=== PATIENT | male | born 1935 | race Caucasian/White ===

== ENCOUNTER 2024-03-13 09:45 | Inpatient (IN) ==
[2024-03-13] MEDS: Morphine 4 MG/ML VIAL (1 ml) IV ONE ×3 (10:42→13:50)
[2024-03-13 11:10] LABS: ABS Lymphocytes 0.2 10^3/uL (1.0-4.8); ABS Monocytes 1.1 10^3/uL (0.0-1.1); ABS Neutrophils 17.5 10^3/uL (1.5-7.6); Lymphocyte % 1.1 %; Platelet Count 130 10^3/uL (150-450)
[2024-03-13] MEDS: cefTRIAXone 2 gm/50 mL D5W 2 GM/50 ML BAG IV ONE (11:10)
[2024-03-13 11:16] LABS: Hemoglobin 13.4 g/dL (13.2-16.3); Mean Corpuscular Hemoglobin 31.2 pg (27-33); Mean Corpuscular Hgb Conc 33.5 g/dL (31-36); Mean Corpuscular Volume 93.2 fL (80-97); Red Blood Count 4.29 10^6/uL (4.06-5.63); Red Cell Distribution Width 13.9 % (12-17); White Blood Count 18.9 10^3/uL (3.6-10.2)
[2024-03-13] MEDS: Acetaminophen IV 1 GM/100ML 1,000 MG/100 ML BAG IV ONE (11:19)
[2024-03-13] MEDS: Lactated Ringers SEPSIS* BAG 2,260 ML IV ONE (11:19)
[2024-03-13 11:41] LABS: Albumin 3.8 g/dL (3.2-5.2); Albumin/Globulin Ratio 1.5 (1-3); C Reactive Protein 216.4 mg/L (<8.01); Creatinine, Serum 1.38 mg/dL (0.67-1.17); Globulin 2.6 g/dL (2-4); Potassium 3.8 mmol/L (3.5-5.0); Total Bilirubin 0.8 mg/dL (0.2-1.0); Total Protein 6.4 g/dL (6.4-8.9); Uric Acid 5.6 mg/dL (4.4-7.6); eGFR CKD-EPI 49.8 (>60)
[2024-03-13] MEDS: Piperacillin/Tazobac 3.375 BAG 3.375 GM/100 ML BAG IV ONE (12:11)
[2024-03-13 12:18] LABS: High Sensitivity Troponin 1 Hr 62 pg/mL (<20)
[2024-03-13 12:21] LABS: Erythrocyte Sed Rate 29 mm/Hr (0-19)
[2024-03-13] MEDS: Iodixanol (CONTRAST) 320 MG/ML 100 ML SDV IV ONE (13:06)
[2024-03-13] MEDS: Vancomycin 1,500 MG in NS 0.9% 250 ml 250 ML IVPB ONE (13:45)
[2024-03-13] MEDS: Lactated Ringers 1000 ml BAG 1,000 ML IV ONE (14:47)
[2024-03-13] MEDS: Lidocaine 1% MPF 5 ML VIAL INJ ONE (14:57)
[2024-03-13] MEDS ORDERED: Vancomycin per Pharmacy 1 EA NOTE FOLLOW UP SCH (17:00)
[2024-03-13] MEDS: Cefepime 2 GM in Dextrose 2 GM/50 ML BAG IV SCH (17:11)
[2024-03-13] MEDS: Enoxaparin 40 MG/0.4 ML SYR SUBCUT SCH (17:13)
[2024-03-13] MEDS: Vancomycin 1,000 MG in NS 0.9% 250 ml 250 ML IVPB ONE (17:15)
[2024-03-13] MEDS: DOXEPIN 3 MG PO SCH (22:21)
[2024-03-14 02:44] LABS: Magnesium 1.9 mg/dL (1.9-2.7)
[2024-03-14] MEDS: cefTRIAXone 2 gm/50 mL D5W 2 GM/50 ML BAG IV SCH (05:19)
[2024-03-14] MEDS ORDERED: Vancomycin Random Level NOTE FOLLOW UP ONE (06:00)
[2024-03-14 06:09] LABS: Hematocrit 35.2 % (38-53); Hemoglobin 12.1 g/dL (13.2-16.3); Mean Corpuscular Hemoglobin 32.3 pg (27-33); Mean Corpuscular Hgb Conc 34.3 g/dL (31-36); Mean Corpuscular Volume 94.1 fL (80-97); Red Blood Count 3.75 10^6/uL (4.06-5.63); Red Cell Distribution Width 14.2 % (12-17); White Blood Count 14.6 10^3/uL (3.6-10.2)
[2024-03-14 06:39] LABS: Calcium 8.1 mg/dL (8.6-10.3); Creatinine, Serum 0.93 mg/dL (0.67-1.17)
[2024-03-14 06:54] LABS: ABS Lymphocytes 0.3 10^3/uL (1.0-4.8); ABS Monocytes 0.8 10^3/uL (0.0-1.1); ABS Neutrophils 13.5 10^3/uL (1.5-7.6); Mean Platelet Volume 9.9 fL (7.5-11.2); Platelet Count 100 10^3/uL (150-450)
[2024-03-14] MEDS ORDERED: Bupivacaine 0.25% SDV 30 ML ONE (10:44)
[2024-03-14] MEDS ORDERED: Lidocaine 2% PF 5 ML VIAL ONE (11:19)
[2024-03-14] MEDS ORDERED: Ondansetron 4 mg VIAL 2 MG/ML 2 ml VIAL ONE (11:19)
[2024-03-14] MEDS ORDERED: Propofol 10 MG/ML 20 ML BTL ONE ×2 (11:19→11:40)
[2024-03-14] MEDS ORDERED: fentaNYL 100 mcg/2 ml 50 MCG/ML VIAL ONE ×2 (11:19→12:24)
[2024-03-14] MEDS ORDERED: HYDROmorphone 1 MG/1 ML SYRINGE IV PRN (11:46)
[2024-03-14] MEDS ORDERED: Naloxone 0.4 mg VIAL 0.4 mg/ml 1 ml VIAL IV PRN (11:46)
[2024-03-14] MEDS ORDERED: Ondansetron 4 mg VIAL 2 MG/ML 2 ml VIAL IV PRN ×2 (11:46→13:34)
[2024-03-14] MEDS: fentaNYL 100 mcg/2 ml 50 MCG/ML VIAL IV PRN (12:28)
[2024-03-14] MEDS ORDERED: Acetaminophen IV 1 GM/100ML 1,000 MG/100 ML BAG IV ONE (12:49)
[2024-03-14] MEDS: Acetaminophen IV 1 GM/100ML 1,000 MG/100 ML BAG IV PRN (12:51)
[2024-03-14] MEDS ORDERED: Lactulose 30 ml UDC PO PRN (13:34)
[2024-03-14] MEDS ORDERED: Ondansetron ODT 4 mg TAB 4 MG TAB PO PRN (13:34)
[2024-03-14] MEDS ORDERED: Magnesium Hydroxide LIQ 30 ML UDC PO PRN (13:34)
[2024-03-14] MEDS: Lactated Ringers 1000 ml BAG 1,000 ML IV SCH (14:05)
[2024-03-14] MEDS: Sulfur Hexaflouride MICROSPHR 25 MG VIAL IV ONE (17:24)
[2024-03-14] MEDS: Magnesium Hydroxide LIQ 30 ML UDC PO SCH (20:24)
[2024-03-14 20:36] LABS: Urine Appearance Clear; Urine Bilirubin Negative (Negative); Urine Blood 2+ (Negative); Urine Color Yellow; Urine Glucose 3+ (>=300 mg/dL) (Negative); Urine Ketones Trace (Negative); Urine Nitrite Negative (Negative); Urine Protein 1+ (>=30 mg/dL) (Negative); Urine Specific Gravity 1.025 (1.002-1.030); Urine Urobilinogen Negative (Negative)
[2024-03-14 20:45] LABS: Urine Bacteria Absent /HPF (Absent); Urine Red Blood Cell 2+(6-10/hpf) /HPF (0-Trace); Urine Squamous Epithelial Cell Present /HPF (Absent); Urine White Blood Cell Trace(0-5/hpf) /HPF (0-Trace)
[2024-03-15 06:19] LABS: Hematocrit 34.5 % (38-53); Hemoglobin 11.8 g/dL (13.2-16.3); Mean Corpuscular Hemoglobin 32.3 pg (27-33); Mean Corpuscular Hgb Conc 34.3 g/dL (31-36); Mean Corpuscular Volume 94.1 fL (80-97); Mean Platelet Volume 10.2 fL (7.5-11.2); Platelet Count 99 10^3/uL (150-450); Red Blood Count 3.66 10^6/uL (4.06-5.63); Red Cell Distribution Width 13.9 % (12-17)
[2024-03-15 06:30] LABS: Calcium 7.9 mg/dL (8.6-10.3); Creatinine, Serum 0.86 mg/dL (0.67-1.17); Potassium 3.9 mmol/L (3.5-5.0); eGFR CKD-EPI 84.3 (>60)
[2024-03-15] MEDS: Vitamin THERAPEUTIC TAB PO SCH (08:41)
[2024-03-15] MEDS ORDERED: Sulfur Hexaflouride MICROSPHR 25 MG VIAL ONE (09:00)
[2024-03-17 16:14] LABS: Urine Appearance Clear; Urine Bilirubin Negative (Negative); Urine Blood 1+ (Negative); Urine Color Yellow; Urine Glucose 1+ (>=70 mg/dL) (Negative); Urine Ketones Negative (Negative); Urine Nitrite Negative (Negative); Urine Protein 2+ (>=100 mg/dL) (Negative); Urine Specific Gravity 1.026 (1.002-1.030); Urine Urobilinogen 2+ (Negative)
[2024-03-17 16:46] LABS: Urine Bacteria Absent /HPF (Absent); Urine Red Blood Cell 2+(6-10/hpf) /HPF (0-Trace); Urine Squamous Epithelial Cell Present /HPF (Absent); Urine White Blood Cell Trace(0-5/hpf) /HPF (0-Trace)
[2024-03-17 17:24] LABS: ABS Lymphocytes 0.5 10^3/uL (1.0-4.8); ABS Monocytes 1.2 10^3/uL (0.0-1.1); ABS Neutrophils 5.2 10^3/uL (1.5-7.6); Eosinophil % 0.7 %; Hematocrit 32.1 % (38-53); Hemoglobin 10.8 g/dL (13.2-16.3); Lymphocyte % 6.9 %; Mean Corpuscular Hemoglobin 31.4 pg (27-33); Mean Corpuscular Hgb Conc 33.5 g/dL (31-36); Mean Corpuscular Volume 93.8 fL (80-97); Mean Platelet Volume 9.9 fL (7.5-11.2); Platelet Count 169 10^3/uL (150-450); Red Blood Count 3.42 10^6/uL (4.06-5.63); Red Cell Distribution Width 13.9 % (12-17); White Blood Count 6.9 10^3/uL (3.6-10.2)
[2024-03-17 18:10] LABS: Albumin 2.6 g/dL (3.2-5.2); Albumin/Globulin Ratio 1.1 (1-3); Calcium 7.6 mg/dL (8.6-10.3); Creatinine, Serum 0.81 mg/dL (0.67-1.17); Globulin 2.3 g/dL (2-4); Potassium 4.1 mmol/L (3.5-5.0); Total Bilirubin 0.7 mg/dL (0.2-1.0); Total Protein 4.9 g/dL (6.4-8.9); eGFR CKD-EPI 85.9 (>60)
[2024-03-18 09:25] LABS: Hematocrit 33.1 % (38-53); Hemoglobin 11.1 g/dL (13.2-16.3); Mean Corpuscular Hemoglobin 31.3 pg (27-33); Mean Corpuscular Hgb Conc 33.6 g/dL (31-36); Mean Corpuscular Volume 93.2 fL (80-97); Mean Platelet Volume 8.9 fL (7.5-11.2); Platelet Count 201 10^3/uL (150-450); Red Blood Count 3.55 10^6/uL (4.06-5.63); Red Cell Distribution Width 13.9 % (12-17); White Blood Count 7.2 10^3/uL (3.6-10.2)
[2024-03-18 10:07] LABS: ABS Lymphocytes 0.5 10^3/uL (1.0-4.8); ABS Monocytes 0.8 10^3/uL (0.0-1.1); ABS Neutrophils 5.9 10^3/uL (1.5-7.6); Eosinophil % 0.5 %; Lymphocyte % 6.9 %
[2024-03-18 10:17] LABS: C Reactive Protein 182.62 mg/L (<8.01); Creatinine, Serum 0.7 mg/dL (0.67-1.17); eGFR CKD-EPI 89.7 (>60)
[2024-03-18 10:53] LABS: Albumin 2.8 g/dL (3.2-5.2); Albumin/Globulin Ratio 1.1 (1-3); Direct Bilirubin 0.5 mg/dL (0.03-0.18); Globulin 2.5 g/dL (2-4); Indirect Bilirubin 0.5 mg/dL (0.3-1.0); Total Protein 5.3 g/dL (6.4-8.9)
[2024-03-18] MEDS ORDERED: Vancomycin per Pharmacy 1 EA NOTE FOLLOW UP PRN (11:56)
[2024-03-18 14:42] LABS: IgG Immunoblot Negative (Negative); IgM Immunoblot Negative (Negative)
[2024-03-19] MEDS: Vancomycin 1,500 MG in NS 0.9% 250 ml 250 ML IVPB ONE (06:54)
[2024-03-19 07:59] LABS: ABS Lymphocytes 0.6 10^3/uL (1.0-4.8); ABS Neutrophils 6.6 10^3/uL (1.5-7.6); Eosinophil % 0.6 %; Hematocrit 31.9 % (38-53); Hemoglobin 10.9 g/dL (13.2-16.3); Lymphocyte % 7.6 %; Mean Corpuscular Hemoglobin 32.1 pg (27-33); Mean Corpuscular Hgb Conc 34.2 g/dL (31-36); Mean Corpuscular Volume 93.8 fL (80-97); Mean Platelet Volume 9.5 fL (7.5-11.2); Platelet Count 237 10^3/uL (150-450); White Blood Count 8.3 10^3/uL (3.6-10.2)
[2024-03-19 08:16] LABS: Albumin 2.8 g/dL (3.2-5.2); Albumin/Globulin Ratio 0.9 (1-3); C Reactive Protein 157.04 mg/L (<8.01); Calcium 7.9 mg/dL (8.6-10.3); Creatinine, Serum 0.74 mg/dL (0.67-1.17); Globulin 3.2 g/dL (2-4); Potassium 3.9 mmol/L (3.5-5.0); eGFR CKD-EPI 88.2 (>60)
[2024-03-19] MEDS: Vancomycin 1000 MG in NS 0.9% 250 ML IVPB SCH (17:09)
[2024-03-20 06:01] LABS: ABS Eosinophils 0.1 10^3/uL (0.0-0.5); ABS Lymphocytes 0.7 10^3/uL (1.0-4.8); ABS Monocytes 1.3 10^3/uL (0.0-1.1); ABS Neutrophils 6.6 10^3/uL (1.5-7.6); Eosinophil % 0.7 %; Hematocrit 31.8 % (38-53); Hemoglobin 10.8 g/dL (13.2-16.3); Lymphocyte % 8.1 %; Mean Corpuscular Hemoglobin 31.6 pg (27-33); Mean Corpuscular Hgb Conc 33.9 g/dL (31-36); Mean Corpuscular Volume 93.2 fL (80-97); Mean Platelet Volume 9.3 fL (7.5-11.2); Platelet Count 284 10^3/uL (150-450); Red Blood Count 3.42 10^6/uL (4.06-5.63); White Blood Count 8.7 10^3/uL (3.6-10.2)
[2024-03-20 06:27] LABS: Albumin 2.8 g/dL (3.2-5.2); Albumin/Globulin Ratio 1.1 (1-3); Calcium 7.9 mg/dL (8.6-10.3); Creatinine, Serum 0.76 mg/dL (0.67-1.17); Globulin 2.6 g/dL (2-4); Potassium 4.2 mmol/L (3.5-5.0); Total Bilirubin 1.1 mg/dL (0.2-1.0); Total Protein 5.4 g/dL (6.4-8.9); eGFR CKD-EPI 87.5 (>60)
[2024-03-20] MEDS ORDERED: Bupivacaine 0.25% SDV 30 ML ONE ×2 (10:05→12:00)
[2024-03-20] MEDS ORDERED: Lidocaine 2% PF 5 ML VIAL ONE (10:10)
[2024-03-20] MEDS ORDERED: Dexmedetomidine 200 mcg/2 ml 2 ml VIAL (200 mcg) ONE (10:10)
[2024-03-20] MEDS ORDERED: Propofol 10 MG/ML 20 ML BTL ONE ×2 (10:10→11:07)
[2024-03-20] MEDS ORDERED: Sodium Chloride 0.9% 10 ML ONE (10:15)
[2024-03-20 10:46] LABS: C Reactive Protein 149.19 mg/L (<8.01)
[2024-03-20] MEDS ORDERED: HYDROmorphone 0.5 MG/0.5 ML SYRINGE ONE (10:49)
[2024-03-20] MEDS ORDERED: Dexamethasone IV 4 MG/ML VIAL 1 ml VIAL ONE (11:20)
[2024-03-20] MEDS ORDERED: Naloxone 0.4 mg VIAL 0.4 mg/ml 1 ml VIAL IV PRN (11:47)
[2024-03-20] MEDS ORDERED: Ondansetron 4 mg VIAL 2 MG/ML 2 ml VIAL IV PRN (11:47)
[2024-03-20] MEDS ORDERED: NS 0.45% 1000 ml BAG 1,000 ML IV SCH (12:00)
[2024-03-20] MEDS ORDERED: hydrALAZINE 20 mg/ml 1 ML Vial IV ONE (13:12)
[2024-03-20] MEDS: hydrALAZINE 20 mg/ml 1 ML Vial IV IV SLOW PU PRN (13:13)
[2024-03-20] MEDS ORDERED: Acetaminophen IV 1 GM/100ML 1,000 MG/100 ML BAG IV ONE (13:50)
[2024-03-20] MEDS: Acetaminophen IV 1 GM/100ML 1,000 MG/100 ML BAG IV ONE (13:54)
[2024-03-20] MEDS ORDERED: Lidocaine 2% JELLY 6 ML Topical TOPICAL ONE (13:57)
[2024-03-20] MEDS ORDERED: Metoprolol Tartrate 5 mg VIAL 5 ml VIAL (1 mg/ml) ONE (13:57)
[2024-03-20] MEDS: Lidocaine 2% JELLY 6 ML Topical TOPICAL ONE (13:59)
[2024-03-20] MEDS: Metoprolol Tartrate 5 mg VIAL 5 ml VIAL (1 mg/ml) IV ONE ×2 (14:04→16:29)
[2024-03-20] MEDS: Morphine 2 MG/ML SYRINGE IV PRN (15:17)
[2024-03-20 15:53] LABS: ABS Basophils 0.1 10^3/uL (0.0-0.1); ABS Lymphocytes 0.3 10^3/uL (1.0-4.8); ABS Monocytes 0.3 10^3/uL (0.0-1.1); ABS Neutrophils 11.3 10^3/uL (1.5-7.6); ABS Nucleated RBC 0.01 10^3/ul; Eosinophil % 0.1 %; Hematocrit 34.7 % (38-53); Hemoglobin 11.6 g/dL (13.2-16.3); Lymphocyte % 2.9 %; Mean Corpuscular Hemoglobin 31.4 pg (27-33); Mean Corpuscular Hgb Conc 33.6 g/dL (31-36); Mean Corpuscular Volume 93.6 fL (80-97); Mean Platelet Volume 8.5 fL (7.5-11.2); Nucleated Red Blood Cells % 0.1 %/100WBC (0.0-0.8); Platelet Count 337 10^3/uL (150-450); Red Blood Count 3.71 10^6/uL (4.06-5.63); Red Cell Distribution Width 14.3 % (12-17); White Blood Count 11.9 10^3/uL (3.6-10.2)
[2024-03-21] MEDS: Vancomycin Trough Check NOTE FOLLOW UP ONE ×2 (05:30→17:45)
[2024-03-22 05:49] LABS: ABS Monocytes 0.9 10^3/uL (0.0-1.1); ABS Neutrophils 6.7 10^3/uL (1.5-7.6); ABS Nucleated RBC 0.01 10^3/ul; Eosinophil % 0.4 %; Hematocrit 31.7 % (38-53); Hemoglobin 10.8 g/dL (13.2-16.3); Lymphocyte % 11.8 %; Mean Corpuscular Hemoglobin 31.6 pg (27-33); Mean Corpuscular Hgb Conc 33.9 g/dL (31-36); Mean Corpuscular Volume 93.1 fL (80-97); Mean Platelet Volume 8.6 fL (7.5-11.2); Nucleated Red Blood Cells % 0.1 %/100WBC (0.0-0.8); Platelet Count 359 10^3/uL (150-450); Red Blood Count 3.41 10^6/uL (4.06-5.63); White Blood Count 8.7 10^3/uL (3.6-10.2)
[2024-03-22 07:24] LABS: Calcium 7.7 mg/dL (8.6-10.3); Creatinine, Serum 0.88 mg/dL (0.67-1.17); Potassium 4.3 mmol/L (3.5-5.0); eGFR CKD-EPI 83.7 (>60)
[2024-03-22 08:37] LABS: Albumin 2.7 g/dL (3.2-5.2); Direct Bilirubin 0.1 mg/dL (0.03-0.18); Globulin 2.6 g/dL (2-4); Indirect Bilirubin 0.5 mg/dL (0.3-1.0); Total Bilirubin 0.6 mg/dL (0.2-1.0); Total Protein 5.3 g/dL (6.4-8.9)
[2024-03-24] MEDS: Vancomycin 1,250 MG in NS 0.9% 250 ml 250 ML IVPB ONE (10:04)
[2024-03-24 14:30] VITALS: BP 151/69
== END 2024-03-24 15:50 | disposition home health service (06) | DRG 854 ==
LOC: EDHOLD 09:45 → ED 09:45 → SUATTDRO 11:16 → OBSVTOIN 16:14 → MED 17:39 → SSU 03-14 10:44
PROVIDERS: ADMIT Hospitalist; ATTEND Internal Medicine